=== PATIENT | female | born 1950 | race Caucasian/White ===

== ENCOUNTER 2019-01-12 15:18 | Outpatient (CLI) | payer MEDICARE, OTHER | END 2019-01-12 15:19 | disposition home or self-care (01) | LOC: BICMAMMO 15:18 | PROVIDERS: ATTEND Internal Medicine | DX: Z12.31 Encounter for screening mammogram for malignant neoplasm of breast (principal); R92.1 Mammographic calcification found on diagnostic imaging of breast; Z80.3 Family history of malignant neoplasm of breast | CPT/HCPCS: 77063; 77067 ==

== ENCOUNTER 2019-06-17 14:01 | Outpatient (CLI) | payer MEDICARE, OTHER ==
--- NOTE | 2019-06-17 14:37 | CT ---
NONCONTRAST CT CERVICAL SPINE: Date: 06/17/19 HISTORY: Neck pain with radiation of pain into left arm. Tingling in hand. COMPARISON: None available. TECHNIQUE: Contiguous axial CT images are obtained through the cervical spine from the skull base to the T2-3 le gilbert. Sagittal and coronal reformatted images are provided. FINDINGS: There are postsurgical changes related to anterior cervical fusion with an anterior plate and screws transfixing the C4 through C6 levels with intradiscal prostheses also present at these levels. No chiara dware complication is appreciated. No fracture is seen involving the cervical spine. There is slight anterolisthesis of C3 on C4, as wel l as C7 on T1, likely related to the facet degenerative changes at these levels. The vertebral body h eights are within normal limits. Multilevel degenerative changes are present in the cervical spine. Scattered mild degrees of neural f oraminal narrowing are present related to bony encroachment. The interspinous distances are within normal limits. Prevertebral soft tissues are within normal limits. Chronic changes are seen in the lung apices bilaterally with mild pleural and parenchymal scarring, a nd mild emphysematous changes noted. IMPRESSION: 1. Postoperative changes cervical spine related to anterior cervical fusion of C4 through C6. 2. Multilevel degenerative changes in the cervical spine. There is slight anterolisthesis of C3 on C 4 and C7 on T1, likely attributable to the facet degenerative changes at these levels. 3. No significant bony encroachment is seen involving the neural foramina or central spinal canal. 4. Chronic changes at lung apices. POS: HEIDI
== END 2019-06-17 14:02 | disposition home or self-care (01) ==
LOC: BICCT 14:01
PROVIDERS: ATTEND Specialist
DX: M48.02 Spinal stenosis, cervical region (principal); M47.812 Spondylosis without myelopathy or radiculopathy, cervical region; M43.12 Spondylolisthesis, cervical region; M43.13 Spondylolisthesis, cervicothoracic region; Z98.1 Arthrodesis status
CPT/HCPCS: 72125

== ENCOUNTER 2019-09-15 11:41 | Outpatient (CLI) | payer MEDICARE, OTHER ==
--- NOTE | 2019-09-15 13:29 | CT ---
CT Pulmonary Lung Scan History: Personal history of nicotine dependence Comparison: None. FINDINGS: Lung screening specific (lung RADS): No suspicious pulmonary nodule. Potentially significant incidentals (lung RADS category S): Negative. Pulmonary incidentals: Moderate biapical pleural scarring. Moderate paraseptal and centrilobular emphysema. There is bronchiectasis and chronic volume loss within the right middle lobe. Incidental note is made of an azygos fissure. Extensive debris within right middle lobe and right lower lobe bronchi. Other incidentals: Mild S-shaped scoliosis thoracolumbar spine. Limited evaluation of the upper abdom en appears unremarkable. IMPRESSION: 1. Lung RADS category 1: Negative. Continue annual low dose screening in one year. 2. Lung RADS category S: Negative. No new or unknown potentially significant incidental findings requ iring urgent additional evaluation. 3. Moderate centrilobular and paraseptal emphysema. 4. Chronic volume loss and bronchiectasis right middle lobe could be sequelae of atypical infection. 5. Extensive debris within the right lobe and right lower lobe bronchi. This is felt to reflect aspi ration, less likely multifocal endobronchial masses. Transcribed Date/Time: 09/15/2019 1:53 PM
== END 2019-09-15 11:42 | disposition home or self-care (01) ==
LOC: CT 11:41
PROVIDERS: ATTEND Internal Medicine
DX: Z87.891 Personal history of nicotine dependence (principal); J43.9 Emphysema, unspecified; J47.9 Bronchiectasis, uncomplicated
CPT/HCPCS: G0297

== ENCOUNTER 2019-12-21 13:59 | Outpatient (CLI) | payer MEDICARE, OTHER ==
--- NOTE | 2019-12-21 14:26 | RAD ---
EXAM: XR Lumbar Spine Bending Min 4V PROVIDED CLINICAL HISTORY: Lumbar spondylosis. Chronic back pain. History of prior spinal surgery. COMPARISON: 03/06/2017 FINDINGS: Again, there are 6 nonrib-bearing lumbar-type vertebral bodies. As noted on the prior exam, there are left-sided pedicular screws in the lowermost 3 lumbar vertebral bodies with lateral left-sided pedicular screws and posterior rods transfixing this level. No hardware complication is seen. Skin cl ips overlying the spine have been removed. Dorsal column stimulator leads are partially imaged. There is prominent left convex rotoscoliosis of the thoracolumbar spine. Narrowing of the interverteb ral disc spaces of the upper lumbar spine are again noted with associated endplate degenerative changes. No fracture is seen. There is slight grade 1 anterolisthesis of L4 on L5 and L5 on L6. Vascular calcifications are seen in the abdominal aorta and involving the iliac arteries. IMPRESSION: Overall stable postoperative and degenerative changes lumbar spine with left convex rotoscoliosis tho racolumbar spine.
== END 2019-12-21 14:00 | disposition home or self-care (01) ==
LOC: RAD 13:59
PROVIDERS: ATTEND Nurse Practitioner Family
DX: M47.816 Spondylosis without myelopathy or radiculopathy, lumbar region (principal); M41.9 Scoliosis, unspecified; Z98.890 Other specified postprocedural states
CPT/HCPCS: 72120

== ENCOUNTER 2020-05-09 06:18 | Outpatient (CLI) | payer MEDICARE, OTHER ==
[2020-05-10 13:47] LABS: SARS-CoV-2 MS2 Positive; SARS-CoV-2 N Gene Negative; SARS-CoV-2 S Gene Negative; SARS-CoV-2 orf1ab Negative
== END 2020-05-09 06:19 | disposition home or self-care (01) ==
LOC: LABBT 06:18
PROVIDERS: ATTEND Specialist
DX: Z01.812 Encounter for preprocedural laboratory examination (principal); Z11.59 Encounter for screening for other viral diseases; G89.4 Chronic pain syndrome; M96.1 Postlaminectomy syndrome, not elsewhere classified; M51.16 Intervertebral disc disorders with radiculopathy, lumbar region
CPT/HCPCS: 87635; U0003

== ENCOUNTER 2020-08-08 06:20 | Outpatient (CLI) | payer MEDICARE, OTHER ==
[2020-08-09 13:22] LABS: SARS-CoV-2 MS2 Positive; SARS-CoV-2 N Gene Negative; SARS-CoV-2 S Gene Negative; SARS-CoV-2 by NAA Not Detected (NotDetected); SARS-CoV-2 orf1ab Negative
== END 2020-08-08 06:21 | disposition home or self-care (01) ==
LOC: LABBT 06:20
PROVIDERS: ATTEND Specialist
DX: G89.4 Chronic pain syndrome (principal); M96.1 Postlaminectomy syndrome, not elsewhere classified; M51.16 Intervertebral disc disorders with radiculopathy, lumbar region; Z20.828 Contact with and (suspected) exposure to other viral communicable diseases
CPT/HCPCS: 87635; U0003

== ENCOUNTER 2020-08-11 10:29 | Day surgery (SDC) | payer MEDICARE, OTHER ==
[2020-08-10 10:33] VITALS: BMI 19.7
[~2020-08-11 10:29] MED LIST: Dexamethasone 20 MG/5 ML VIAL ONE; EPHEDRINE 25 MG/5 ML SYRINGE ONE; Ondansetron PF 4 MG/2 ML Vial ONE; PROPOFOL 200 MG/20 ML VIAL ONE
[2020-08-11] MEDS ORDERED: Propofol 500 MG/50 ML VIAL ONE (12:20)
[2020-08-11] MEDS ORDERED: Fentanyl 100 MCG/2 ML VIAL ONE (12:21)
[2020-08-11] MEDS ORDERED: Bupivacaine PF 0.5% 30 ML VIAL ONE ×2 (12:29→12:58)
[2020-08-11] MEDS ORDERED: Lidocaine 1% w/Epinephrine 1:100K 20 ML VIAL ONE (12:29)
[2020-08-11] MEDS ORDERED: Vancomycin 1 GM/200 ML BAG ONE (12:34)
--- NOTE | 2020-08-11 14:35 | RAD ---
Intraoperative imaging of the thoracic spine: 08/11/2020 HISTORY: Dorsal column stimulator placement FINDINGS: A single coned down frontal radiograph of the lower thoracic spine demonstrates dorsal colu mn stimulators which appear to terminate in the T7-8 region. Vertebral body numbering is not precise as the entirety of the thoracic spine is not imaged. IMPRESSION: Dorsal column stimulating leads as above.
--- NOTE | 2020-08-11 20:32 | OP ---
DATE OF PROCEDURE: 08/11/2020 PREOPERATIVE DIAGNOSES: 1. Chronic pain syndrome. 2. Post-laminectomy syndrome. 3. Lumbar radiculopathy. POSTOPERATIVE DIAGNOSES: 1. Chronic pain syndrome. 2. Post-laminectomy syndrome. 3. Lumbar radiculopathy. PROCEDURES PERFORMED: 1. Spinal cord stimulator generator replacement. 2. Spinal cord stimulator lead revision x1. SPECIMENS REMOVED: 1. SCS battery x1. 2. SCS lead x1. 3. [place] x1, all intact. ESTIMATED BLOOD LOSS: About 5 mL. SUMMARY OF PROCEDURE: The patient was taken to the procedure room and placed prone on the procedure room table. A time-out was performed. We used DuraPrep to prep the back, and sterile drapes were applied. Using the fluoroscopy, we located the old anchor site. We anesthetized the skin with 0.5% Marcaine. We then made an incision with a 10-blade scalpel. We blunt dissected this down to the anchor. The right-sided lead was the one that had migrated; therefore, we chose a right-sided anchor. We cut the two sutures holding that in and removed the sutures. We then slowly removed the lead and anchored together. Lead came out intact. We then anesthetized the battery sites. We made an incision and blunt dissected this down to the pocket. We opened the pocket, brought the battery up to the surface, disconnected the leads, and threaded the lead that was removed out the anchor pocket. Lead came out intact. This was discarded. The battery was also discarded as it was no longer working. We then used a 14-gauge Rx Coude needle and inserted it with a left paramedian technique to the interspace of T12-L1. We engaged in the ligament and used loss of resistance to gain access to the epidural space. Aspiration was negative for heme or CSF. We then threaded the 8-contact new lead up the midline dorsal epidural space to the midbody of T7 and placed that just right of the other lead. Stimulation was performed with the patient awake and the patient noted paresthesia in all pain areas. The testing was performed with the patient awake. We then took care to remove the needle without removing the lead. The needle and the stylettes were removed. We placed an anchor over the lead and sutured this down to fascia with 2-0 silk sutures x2. We then used a tunneling device to tunnel this lead to the battery pocket. We excised the old scar tissue from the battery pocket as it was too shallow. We then dissected approximately 2 cm deep to this and made another pocket. The scar tissue was removed, cauterized, and sewn together as to prevent a seroma. The new battery was connected to the leads. The leads were torqued down to the battery and testing was performed and the impedances were all good. The battery was slipped into the new pocket. Fascia was closed with 2-0 Vicryl suture in simple interrupted fashion as well as horizontal mattress sutures in multiple layers. We then used a 3-0 Rapide to approximate the skin layer using a subcuticular stitch. Dermabond was placed over this and allowed to dry and then sterile 4x4s and Medipore tape were placed over this. The patient was taken to Day Stay under stable condition. Job ID: [id number]
== END 2020-08-11 16:10 | disposition home or self-care (01) ==
LOC: SDC 10:29
PROVIDERS: ATTEND Specialist
PROC: 00WU3MZ Revision of Neurostimulator Lead in Spinal Canal, Percutaneous Approach (ICD-10-PCS; principal; 2020-08-11)
PROC: 0JPT0MZ Removal of Stimulator Generator from Trunk Subcutaneous Tissue and Fascia, Open Approach (ICD-10-PCS; 2020-08-11)
PROC: 0JH70MZ Insertion of Stimulator Generator into Back Subcutaneous Tissue and Fascia, Open Approach (ICD-10-PCS; 2020-08-11)
DX: G89.4 Chronic pain syndrome (principal); M96.1 Postlaminectomy syndrome, not elsewhere classified; M47.26 Other spondylosis with radiculopathy, lumbar region; M51.16 Intervertebral disc disorders with radiculopathy, lumbar region; M43.12 Spondylolisthesis, cervical region; M53.3 Sacrococcygeal disorders, not elsewhere classified; M48.061 Spinal stenosis, lumbar region without neurogenic claudication; J45.909 Unspecified asthma, uncomplicated; K21.9 Gastro-esophageal reflux disease without esophagitis; M06.9 Rheumatoid arthritis, unspecified; F17.210 Nicotine dependence, cigarettes, uncomplicated; Z79.899 Other long term (current) drug therapy; Z88.0 Allergy status to penicillin; Z88.1 Allergy status to other antibiotic agents; Z88.6 Allergy status to analgesic agent; Z98.1 Arthrodesis status
CPT/HCPCS: 63663; 63685; 72020; 76000; C1767; C1778; J1100; J2405; J2704; J3010; J3370; S0020

== ENCOUNTER 2021-01-20 13:36 | Outpatient (CLI) | payer MEDICARE, OTHER | END 2021-01-20 13:37 | disposition home or self-care (01) | LOC: BICMAMMO 13:36 | PROVIDERS: ATTEND Internal Medicine | DX: Z12.31 Encounter for screening mammogram for malignant neoplasm of breast (principal); Z12.2 Encounter for screening for malignant neoplasm of respiratory organs; F17.210 Nicotine dependence, cigarettes, uncomplicated; J98.11 Atelectasis; J43.2 Centrilobular emphysema; I25.10 Atherosclerotic heart disease of native coronary artery without angina pectoris; M47.9 Spondylosis, unspecified | CPT/HCPCS: 71271; 77063; 77067 ==

== ENCOUNTER 2021-12-19 14:56 | Outpatient (CLI) | payer MEDICARE, OTHER | END 2021-12-19 14:57 | disposition home or self-care (01) | LOC: BICRAD 14:56 | PROVIDERS: ATTEND Nurse Practitioner Family | DX: M48.061 Spinal stenosis, lumbar region without neurogenic claudication (principal); M51.36 Other intervertebral disc degeneration, lumbar region; M47.816 Spondylosis without myelopathy or radiculopathy, lumbar region; M43.16 Spondylolisthesis, lumbar region; M41.9 Scoliosis, unspecified; I70.0 Atherosclerosis of aorta; Z98.890 Other specified postprocedural states | CPT/HCPCS: 72100 ==

== ENCOUNTER 2022-03-29 07:35 | Day surgery (SDC) | payer MEDICARE, OTHER ==
[2022-03-28 07:11] VITALS: BMI 19.3
[2022-03-29 08:16] VITALS: TEMP 97.9
[2022-03-29 12:14] VITALS: BP 112/75
== END 2022-03-29 10:15 | disposition home or self-care (01) ==
LOC: RAD 07:35
PROVIDERS: ATTEND Specialist
PROC: B01B1ZZ Fluoroscopy of Spinal Cord using Low Osmolar Contrast (ICD-10-PCS; principal; 2022-03-29)
DX: M48.061 Spinal stenosis, lumbar region without neurogenic claudication (principal); M47.26 Other spondylosis with radiculopathy, lumbar region; M41.9 Scoliosis, unspecified; M43.15 Spondylolisthesis, thoracolumbar region; M48.05 Spinal stenosis, thoracolumbar region; M43.16 Spondylolisthesis, lumbar region; M43.12 Spondylolisthesis, cervical region; G89.4 Chronic pain syndrome; M53.3 Sacrococcygeal disorders, not elsewhere classified; M51.16 Intervertebral disc disorders with radiculopathy, lumbar region; M96.1 Postlaminectomy syndrome, not elsewhere classified; I70.0 Atherosclerosis of aorta; J45.909 Unspecified asthma, uncomplicated; K21.9 Gastro-esophageal reflux disease without esophagitis; M06.9 Rheumatoid arthritis, unspecified; F17.210 Nicotine dependence, cigarettes, uncomplicated; Z79.890 Hormone replacement therapy; Z79.899 Other long term (current) drug therapy; Z88.0 Allergy status to penicillin; Z88.5 Allergy status to narcotic agent; Z88.8 Allergy status to other drugs, medicaments and biological substances; Z98.1 Arthrodesis status; Z96.82 Presence of neurostimulator
CPT/HCPCS: 62304; 72132

== ENCOUNTER 2022-07-16 07:48 | Outpatient (CLI) | payer MEDICARE, OTHER | END 2022-07-16 07:49 | disposition home or self-care (01) | LOC: SCSMRI 07:48 | PROVIDERS: ATTEND Specialist | DX: M51.14 Intervertebral disc disorders with radiculopathy, thoracic region (principal); M48.061 Spinal stenosis, lumbar region without neurogenic claudication; M96.1 Postlaminectomy syndrome, not elsewhere classified; M43.12 Spondylolisthesis, cervical region; M54.13 Radiculopathy, cervicothoracic region; M47.24 Other spondylosis with radiculopathy, thoracic region; M48.02 Spinal stenosis, cervical region; M47.816 Spondylosis without myelopathy or radiculopathy, lumbar region; Z98.1 Arthrodesis status | CPT/HCPCS: 72125; 72128; 72157; 72158; 82565 ==

== ENCOUNTER 2023-12-23 14:59 | Outpatient (CLI) | payer MEDICARE, OTHER | END 2023-12-23 15:00 | disposition home or self-care (01) | LOC: SCSRAD 14:59 | PROVIDERS: ATTEND Physician Assistant | DX: J06.9 Acute upper respiratory infection, unspecified (principal); J98.4 Other disorders of lung; J98.19 Other pulmonary collapse | CPT/HCPCS: 71046 ==

== ENCOUNTER 2024-01-01 16:21 | Outpatient (CLI) | payer MEDICARE, OTHER | END 2024-01-01 16:22 | disposition home or self-care (01) | LOC: SCSRAD 16:21 | PROVIDERS: ATTEND Physician Assistant | DX: J20.9 Acute bronchitis, unspecified (principal); J98.4 Other disorders of lung | CPT/HCPCS: 71046 ==